=== PATIENT | male | born 2000 | race African-American/Black ===

== ENCOUNTER 2024-12-30 14:33 | Emergency (ER) | payer SELFPAY ==
[2024-12-30 14:36] VITALS: BP 145/84
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
== END 2024-12-30 18:36 | disposition home or self-care (01) ==
LOC: EMR 14:33
PROVIDERS: EMERGENCY PHYSICIAN Student in an Organized Health Care Education/Training Program
DX: Z04.1 Encounter for examination and observation following transport accident (principal)
CPT/HCPCS: 99283; 71046; 72050; 72170; 73060; 73080; 73130